=== PATIENT | male | born 1985 | race Caucasian/White ===

== ENCOUNTER 2021-03-16 21:07 | Observation (INO) | payer BC ==
[2021-03-16] MEDS ORDERED: Dextrose 5% in Water 1,000 ML IV PRN (21:23)
[2021-03-16] MEDS ORDERED: Ondansetron PF 4 MG/2 ML Vial IVP PRN (21:23)
[2021-03-16] MEDS ORDERED: Promethazine HCl 25 MG/ML VIAL IM PRN (21:23)
[2021-03-16] MEDS ORDERED: Dextrose 50% Abboject 50 ML SYRINGE SLOW IVP PRN (21:23)
[2021-03-16] MEDS ORDERED: hydrALAZINE 20 MG/ML VIAL SLOW IVP PRN (21:23)
[2021-03-16] MEDS ORDERED: Morphine 4 MG/ML VIAL SLOW IVP PRN ×2 (21:23→22:04)
[2021-03-16 22:06] VITALS: BMI 32.3
[2021-03-16] MEDS: D5 1/2 NS w/20 mEq KCL 1,000 ML IV SCH (22:17)
[2021-03-16] MEDS ORDERED: Piperacillin/Tazobactam 3.375 GM in Sodium Chloride 0.9% 100 ML IVPB SCH (23:30)
[2021-03-16] MEDS: Ketorolac Tromethamine 30 MG/ML VIAL IVP SCH (23:50)
[2021-03-17] MEDS: D5 1/2 NS w/20 mEq KCL 1,000 ML IV SCH (02:47)
[2021-03-17] MEDS: Piperacillin/Tazobactam 3.375 GM in Sodium Chloride 0.9% 100 ML IVPB SCH ×2 (04:34→13:24)
[2021-03-17] MEDS: Ketorolac Tromethamine 30 MG/ML VIAL IVP SCH ×2 (05:50→12:56)
[2021-03-17] MEDS ORDERED: Bupivacaine 0.25% HCL 30 ML VIAL ONE (06:59)
[2021-03-17] MEDS ORDERED: Xylocaine 1% w/ Epi 1:100K 10 ML VIAL ONE (06:59)
[2021-03-17] MEDS ORDERED: Midazolam HCl 2 mg/2 ml Vial ONE (07:15)
[2021-03-17] MEDS ORDERED: Fentanyl 100 MCG/2 ML VIAL ONE ×3 (07:15→09:12)
[2021-03-17] MEDS ORDERED: Rocuronium Bromide 10 MG/ML (10ML VIAL) ONE (07:38)
[2021-03-17] MEDS ORDERED: Ondansetron PF 4 MG/2 ML Vial ONE (07:38)
[2021-03-17] MEDS ORDERED: Succinylcholine 200 MG/10 ml SYRINGE FS ONE (07:38)
[2021-03-17] MEDS ORDERED: Glycopyrrolate 0.2 MG/ML 5 ML SYRINGE ONE (07:38)
[2021-03-17] MEDS ORDERED: PROPOFOL 200 MG/20 ML VIAL ONE (07:38)
[2021-03-17] MEDS ORDERED: Lidocaine 1% PF 5 ML VIAL ONE (07:38)
[2021-03-17] MEDS ORDERED: Promethazine HCl 25 MG/ML VIAL ONE (08:47)
[2021-03-17] MEDS ORDERED: Ondansetron HCl/PF 4 MG/2 ML Vial IVP PRN (08:48)
[2021-03-17] MEDS ORDERED: HYDROmorphone 2 MG/ML VIAL SLOW IVP PRN (08:48)
[2021-03-17] MEDS ORDERED: Promethazine HCl 25 MG/ML VIAL IM PRN (08:48)
[2021-03-17] MEDS ORDERED: Promethazine HCl 25 MG/ML VIAL IVPB PRN (08:48)
[2021-03-17] MEDS ORDERED: Famotidine/PF 20 mg/2ml Vial SLOW IVP SCH (09:00)
[2021-03-17] MEDS ORDERED: Famotidine 20 MG TAB PO SCH (09:00)
[2021-03-17 15:21] VITALS: TEMP 98
[2021-03-17 15:38] VITALS: BP 155/90
== END 2021-03-17 16:20 | disposition home or self-care (01) ==
LOC: SDC/OP 21:07 → SURG B 21:08 → SDC/OP 21:32 → SURG B 21:32
PROVIDERS: ADMIT Specialist; ATTEND Specialist
PROC: 0DTJ4ZZ Resection of Appendix, Percutaneous Endoscopic Approach (ICD-10-PCS; principal; 2021-03-16)
DX: K35.30 Acute appendicitis with localized peritonitis, without perforation or gangrene (principal); K38.8 Other specified diseases of appendix; I10 Essential (primary) hypertension; M06.9 Rheumatoid arthritis, unspecified; Z79.52 Long term (current) use of systemic steroids; Z79.899 Other long term (current) drug therapy
CPT/HCPCS: 88304; 96365; 96366; 96375; 96376; A4649; G0378; J1885; J2250; J2270; J2405; J2543; J2550; J2704; J3010; J3480; J3490; S0020